=== PATIENT | male | born 1935 | race Caucasian/White ===

== ENCOUNTER → 2019-03-01 | Outpatient (CLI) | payer MEDICARE, OTHER ==
[~2019-03-01] MED LIST: ASPI81CH PO; ATOR20 PO; CAPT25 PO; CARB100 PO; CARBI50 PO; IBUP400 PO; LEVSOD50 PO; MEDICAL MARIJUANA; METO25ER PO; NIFE20 PO; PRAM.5 PO; PROP10 PO; Synthroid75 MCG; WARF4 PO; WARF6 PO
[2019-03-01 15:44] LABS: International Normalized Ratio 1.94; Prothrombin Time Results 19.4 Sec (9.7-11.5)
== END | disposition home or self-care (01) ==
LOC: LAB EV 15:03 → LAB SHORT 15:03
PROVIDERS: Physician Assistant
DX: Z79.01 Long term (current) use of anticoagulants (principal); Z51.81 Encounter for therapeutic drug level monitoring
CPT/HCPCS: 85610

== ENCOUNTER 2019-07-27 07:06 | Day surgery (SDC) | payer MEDICARE, OTHER ==
[~2019-07-27] VITALS: Ht 170.2 cm; Wt 58.3 kg
--- NOTE | 2019-07-27 10:16 | NUR ---
07/27/19 Lisa Lopez PT ACCOMPANIED BY HIS FRIEND "CHARIS". PT DENIED NAUSEA. PT RATED PAIN 1/10 AND TOLERABLE. RN WENT OVER DISCHARGE INSTRUCTIONS WITH PT AND PT'S FRIEND UNTIL ALL QUESTIONS WERE ANSWERED. PT PROVIDED WITH ATHLETIC SUPPORTER. PT DRESSING NOW WITH HELP FROM FRIEND. PT WILL BE SENT HOME WITH WRITTEN INSTRUCTIONS, AND RX. PT ALSO SENT HOME WITH PERSONAL BELONGINGS (HAT, CANE X2, COAT, AND CLOTHING).
== END 2019-07-27 10:22 | disposition home or self-care (01) ==
LOC: ORSCSDS 07:06
PROVIDERS: Surgery
PROC: 0YU60JZ Supplement Left Inguinal Region with Synthetic Substitute, Open Approach (ICD-10-PCS; principal; 2019-07-27 08:30)
DX: K40.30 Unilateral inguinal hernia, with obstruction, without gangrene, not specified as recurrent (principal); I10 Essential (primary) hypertension; E78.5 Hyperlipidemia, unspecified; I48.91 Unspecified atrial fibrillation; G20 Parkinson's disease; Z86.73 Personal history of transient ischemic attack (TIA), and cerebral infarction without residual deficits; Z79.01 Long term (current) use of anticoagulants; Z79.899 Other long term (current) drug therapy; Z87.891 Personal history of nicotine dependence
CPT/HCPCS: C1781; J0690; J2250; J2704; J3010; J7120

== ENCOUNTER 2019-11-02 12:24 | Emergency (ER) | payer MEDICARE, OTHER ==
[~2019-11-02] VITALS: Ht 167.6 cm; Wt 56.2 kg
[2019-11-02] MEDS ORDERED: SINEMET 25-1001 EACH PO (12:38)
[2019-11-02] MEDS ORDERED: WARF5 PO (12:39)
[2019-11-02 13:04] LABS: BASOPHILS ABSOLUTE AUTO 0.03 K/mm3 (0.00-0.23); BASOPHILS PERCENT AUTO 0 % (0-2); EOSINOPHILS ABSOLUTE AUTO 0.03 K/mm3 (0.00-0.68); EOSINOPHILS PERCENT AUTO 0 % (0-6); Hematocrit 37.1 % (37.0-53.0); IMMATURE GRAN ABSOLUTE AUTO 0.01 K/mm3 (0.00-0.10); IMMATURE GRAN PERCENT AUTO 0 % (0-1); LYMPHOCYTES ABSOLUTE AUTO 1.44 K/mm3 (0.84-5.20); LYMPHOCYTES PERCENT AUTO 19 % (21-46); MONOCYTES PERCENT AUTO 7 % (4-13); Mean Corpuscular HGB 31.5 pg (26.0-34.0); Mean Corpuscular HGB Conc 32.3 g/dL (31.5-36.5); Mean Corpuscular Volume 97 fL (80-100); Mean Platelet Volume 8.9 fL (9.1-12.4); NEUTROPHILS ABSOLUTE AUTO 5.68 K/mm3 (1.96-9.15); NEUTROPHILS PERCENT AUTO 74 % (41-73); Platelet Count 295 K/mm3 (150-400); RDW Coefficient Variation 14.2 % (11.7-14.2); RDW Standard Deviation 51.7 fL (35.1-46.3); Red Blood Cell Count 3.81 M/mm3 (4.30-5.90); White Blood Cell Count 7.69 K/mm3 (4.00-11.30)
[2019-11-02 13:33] LABS: Alanine Aminotransfer (ALT/SGP 10 U/L (12-78); Albumin, Blood 3.4 g/dL (3.4-5.0); Albumin/Globulin Ratio 1.2 (0.8-1.8); Alk Phos 83 U/L (50-136); Anion Gap 3 mmol/L (6-16); Aspartate Aminotrans (AST/SGOT 16 U/L (12-37); Bilirubin, Total 0.9 mg/dL (0.1-1.0); Blood Urea Nitrogen 17 mg/dL (8-24); Bun/Creatinine Ratio 27.4 (12.0-20.0); CO2, Blood 28 mmol/L (21-32); Calcium, Blood 8.7 mg/dL (8.5-10.1); Chloride, Blood 109 mmol/L (98-108); Creatinine, Blood 0.62 mg/dL (0.60-1.20); Globulin, Blood 2.9 g/dL (2.2-4.0); Glomerular Filtration Rate >60 (60-); Glucose, Blood 100 mg/dL (70-99); Potassium, Blood 4.1 mmol/L (3.5-5.5); Sodium, Blood 140 mmol/L (136-145); Total Protein, Blood 6.3 g/dL (6.4-8.2); Troponin I 0.024 ng/mL (0.000-0.040)
[2019-11-02 15:32] LABS: International Normalized Ratio 2.22; Prothrombin Time Results 21.9 Sec (9.7-11.5)
== END 2019-11-02 16:40 | disposition short-term general hospital (02) ==
LOC: ER 12:24
PROVIDERS: Emergency Medicine; Physician Assistant
DX: S12.110A Anterior displaced Type II dens fracture, initial encounter for closed fracture (principal); S22.010A Wedge compression fracture of first thoracic vertebra, initial encounter for closed fracture; I48.91 Unspecified atrial fibrillation; I50.9 Heart failure, unspecified; E03.9 Hypothyroidism, unspecified; Z79.899 Other long term (current) drug therapy; Z79.01 Long term (current) use of anticoagulants; W19.XXXA Unspecified fall, initial encounter
CPT/HCPCS: 36415; 70450; 72125; 80053; 84484; 85025; 85610; 85730; 93005; 93010; 99285-25; L0160